=== PATIENT | female | born 1950 | race African-American/Black ===

== ENCOUNTER 2024-04-08 13:12 | Inpatient (IN) | payer MEDICARE ==
[~2024-04-08] VITALS: Ht 162.6 cm; Wt 68.0 kg
[2024-04-08] MEDS ORDERED: SODIUM CHLORIDE 0.9% 1000ML 1,000 ML IV SCH (14:15)
[2024-04-08 14:40] LABS: BASOPHILS % 0.1 % (0.0-1.0); EOSINOPHILS % 0.1 % (0.0-6.0); HEMATOCRIT 43.4 % (34.2-44.1); HEMOGLOBIN 13.4 g/dL (12.0-16.0); LYMPHOCYTES # (AUTO) 1.3 (1.0-3.2); LYMPHOCYTES % 15.2 % (18.0-39.1); MEAN CORPUSCULAR HEMOGLOBIN 29.5 pg (28-32); MEAN CORPUSCULAR HGB CONC 30.9 g/dL (31-35); MEAN CORPUSCULAR VOLUME 95.6 fL (81-99); MONOCYTES # (AUTO) 0.5 (0.2-0.8); MONOCYTES % 5.9 % (4.4-11.3); NEUTROPHILS # (AUTO) 6.9 (2.1-6.9); NEUTROPHILS % 78.4 % (38.7-80.0); PLATELET COUNT 227 x10e3/uL (140-360); RED BLOOD COUNT 4.54 x10e6/uL (3.6-5.1); RED CELL DISTRIBUTION WIDTH 11.9 % (11.7-14.4); WHITE BLOOD COUNT 8.79 x10e3/uL (4.8-10.8)
[2024-04-08 15:02] LABS: ALBUMIN/GLOBULIN RATIO 0.7 (0.8-2.0); BILIRUBIN,TOTAL 0.8 mg/dL (0.2-1.2); CALCIUM 9.5 mg/dL (8.4-10.2); CREATININE, SERUM 0.97 mg/dL (0.57-1.11); POTASSIUM 3.6 mmol/L (3.5-5.1); TOTAL PROTEIN 7.6 g/dL (6.5-8.1)
[2024-04-08 15:54] LABS: ANION GAP 12.6 mmol/L (8-16)
[2024-04-08 16:27] LABS: TROPONIN I 0.033 ng/mL (0-0.300)
[2024-04-08] MEDS: LACTATED RINGER'S 1,000 ML INJ ONE (17:13)
[2024-04-08 17:27] VITALS: PULSE 68; RESP 16; TEMP 98.2
[2024-04-08 17:33] LABS: BILIRUBIN,URINE MODERATE (NEGATIVE); CLARITY,URINE CLEAR (CLEAR); COLOR,URINE YELLOW (YELLOW); GLUCOSE, URINE NEGATIVE (NEGATIVE); KETONES,URINE >=160 (NEGATIVE); LEUKOCYTE ESTERASE ,URINE NEGATIVE (NEGATIVE); NITRITE,URINE NEGATIVE (NEGATIVE); PH,URINE 6 (5 - 7)
[2024-04-08 17:34] LABS: PROTEIN,URINE DIPSTICK 1+ (NEGATIVE)
[2024-04-08 17:45] LABS: BACTERIA,URINE MODERATE /HPF; EPITHELIAL CELLS,URINE FEW /LPF
[2024-04-08 17:47] LABS: MUCUS,URINE FEW (RARE)
[2024-04-08 18:38] VITALS: PULSE 69; RESP 18; O2SAT 98
[2024-04-08 22:38] VITALS: BP 155/83; PULSE 69; RESP 18; O2SAT 98
[2024-04-08 22:56] VITALS: BP 155/83; PULSE 69; RESP 18; TEMP 98.6; O2SAT 98
[2024-04-09] VITALS (7 sets, daily range): BP systolic 141–168; BP diastolic 63–77; PULSE 60–93; RESP 17–18; TEMP 97.3–100.2; O2SAT 94–99
[2024-04-09] MEDS ORDERED: ZYPREXA2.5 MG PO (02:28)
[2024-04-09] MEDS ORDERED: NAMENDA XR14 MG PO (02:28)
[2024-04-09] MEDS ORDERED: SALONPAS (02:28)
[2024-04-09] MEDS ORDERED: LISINOPRIL10 MG PO (02:28)
[2024-04-09] MEDS ORDERED: MUCUS ER600 MG PO (02:28)
[2024-04-09] MEDS ORDERED: ARICEPT5 MG PO (02:28)
[2024-04-09] MEDS ORDERED: HYDROCHLOROTHIA25 MG (02:28)
[2024-04-09] MEDS ORDERED: ZINC SULFATE50 M1 PO (02:28)
[2024-04-09] MEDS ORDERED: ASCORBIC ACID500 M2 PO (02:28)
[2024-04-09] MEDS ORDERED: LIPITOR10 MG PO (02:28)
[2024-04-09] MEDS ORDERED: MIRTAZAPINE15 MG PO (02:28)
[2024-04-09] MEDS ORDERED: LORATADINE10 MG PO (02:28)
[2024-04-09] MEDS ORDERED: DEPAKOTE ER250 MG PO (02:28)
[2024-04-09] MEDS ORDERED: VITAMIN D350 MCG (02:40)
[2024-04-09] MEDS: ACETAMINOPHEN 325 MG TAB PO PRN (05:48)
[2024-04-09 17:21] LABS: ANION GAP 16.2 mmol/L (8-16); CALCIUM 8.7 mg/dL (8.4-10.2); CREATININE, SERUM 0.74 mg/dL (0.57-1.11)
[2024-04-09 17:32] LABS: POTASSIUM 3.2 mmol/L (3.5-5.1)
[2024-04-09] MEDS: DEXTROSE 5% 1,000 ML IV SCH (17:50)
[2024-04-09] MEDS ORDERED: OLANZAPINE 5 MG TAB PO PRN (20:30)
[2024-04-09] MEDS: DONEPEZIL HCL 5 MG TAB PO SCH (21:00)
[2024-04-09] MEDS ORDERED: ATORVASTATIN 10 MG TAB PO SCH (21:00)
[2024-04-09] MEDS: MIRTAZAPINE 15 MG TAB PO PRN (22:16)
[2024-04-10 04:00] VITALS: BP 183/95; PULSE 60; RESP 18; TEMP 98.3; O2SAT 100
[2024-04-10] MEDS: HYDRALAZINE HCL 20 MG/ML VIAL IV PRN (04:27)
[2024-04-10 06:39] LABS: ANION GAP 18.1 mmol/L (8-16); CALCIUM 9.1 mg/dL (8.4-10.2); CREATININE, SERUM 0.76 mg/dL (0.57-1.11)
[2024-04-10 06:43] LABS: POTASSIUM 3.1 mmol/L (3.5-5.1)
[2024-04-10 09:00] VITALS: BP 183/95; PULSE 60; RESP 18; TEMP 98.3; O2SAT 100
[2024-04-10] MEDS ORDERED: DIVALPROEX SODIUM 250 MG TAB...DR PO SCH (09:00)
[2024-04-10] MEDS ORDERED: OLANZAPINE 5 MG TAB PO SCH (09:00)
[2024-04-10 12:09] VITALS: BP 150/90; PULSE 72; RESP 18; TEMP 98.2; O2SAT 95
[2024-04-10] MEDS: POTASSIUM CHLORIDE 20 MEQ TAB CR PO ONE (13:32)
[2024-04-10 15:58] VITALS: BP 132/90; PULSE 70; RESP 18; TEMP 98.2; O2SAT 93
[2024-04-10 20:00] VITALS: BP_SYST 140; BP_SYST 157; BP_DIAS 64; BP_DIAS 96; PULSE 62; PULSE 68; RESP 16; RESP 18; TEMP 98.4; TEMP 98.6; O2SAT 96; O2SAT 99
[2024-04-10] MEDS: DEXTROSE 5% 1,000 ML IV SCH (22:09)
[2024-04-11] VITALS (7 sets, daily range): BP systolic 124–163; BP diastolic 67–94; PULSE 77–99; RESP 18–21; TEMP 97.9–99.6; O2SAT 91–96
[2024-04-11] MEDS: LISINOPRIL 10 MG TAB PO SCH (10:01)
[2024-04-11 13:44] LABS: BASOPHILS % 0.2 % (0.0-1.0); EOSINOPHILS % 0.3 % (0.0-6.0); HEMATOCRIT 43.3 % (34.2-44.1); HEMOGLOBIN 14.3 g/dL (12.0-16.0); LYMPHOCYTES # (AUTO) 1.9 (1.0-3.2); LYMPHOCYTES % 22.5 % (18.0-39.1); MEAN CORPUSCULAR HEMOGLOBIN 29.7 pg (28-32); MEAN CORPUSCULAR VOLUME 89.8 fL (81-99); MONOCYTES # (AUTO) 0.6 (0.2-0.8); MONOCYTES % 7.1 % (4.4-11.3); NEUTROPHILS % 69.4 % (38.7-80.0); PLATELET COUNT 265 x10e3/uL (140-360); RED BLOOD COUNT 4.82 x10e6/uL (3.6-5.1); RED CELL DISTRIBUTION WIDTH 11.9 % (11.7-14.4); WHITE BLOOD COUNT 8.63 x10e3/uL (4.8-10.8)
[2024-04-11 14:03] LABS: ANION GAP 15.9 mmol/L (8-16); CALCIUM 8.9 mg/dL (8.4-10.2); CREATININE, SERUM 0.74 mg/dL (0.57-1.11)
[2024-04-11 14:10] LABS: POTASSIUM 2.9 mmol/L (3.5-5.1)
[2024-04-11] MEDS ORDERED: POTASSIUM CHLORIDE 10MEQ/100ML 100 ML IV ONE (14:45)
[2024-04-11] MEDS ORDERED: POTASSIUM CHLORIDE 20 MEQ TAB CR PO ONE (15:00)
[2024-04-11] MEDS: POTASSIUM CHLORIDE 10MEQ/100ML 100 ML IV SCH (15:18)
[2024-04-12 00:20] VITALS: BP 128/75; PULSE 81; RESP 19; TEMP 98.3; O2SAT 100
[2024-04-12 04:00] VITALS: BP 133/88; PULSE 88; RESP 18; TEMP 97.2; O2SAT 95
[2024-04-12 06:19] LABS: ANION GAP 13.9 mmol/L (8-16); CALCIUM 8.8 mg/dL (8.4-10.2); CREATININE, SERUM 0.78 mg/dL (0.57-1.11); POTASSIUM 3.9 mmol/L (3.5-5.1)
[2024-04-12 08:45] VITALS: BP 133/88; PULSE 88; RESP 18; TEMP 97.2; O2SAT 95
[2024-04-12 09:04] VITALS: BP 140/81; PULSE 88; RESP 16; TEMP 97; O2SAT 100
[2024-04-12 12:00] VITALS: BP 114/96; PULSE 79; RESP 16; TEMP 98.2; O2SAT 95
== END 2024-04-12 17:24 | disposition home or self-care (01) | DRG 640 ==
LOC: ER 13:29 → ERHOLD 18:05 → MED/SURG2 22:13
PROVIDERS: ADMIT Internal Medicine; ATTEND Internal Medicine
DX: E87.0 Hyperosmolality and hypernatremia (principal); U07.1 COVID-19; N39.0 Urinary tract infection, site not specified; G30.9 Alzheimer's disease, unspecified; F02.80 Dementia in other diseases classified elsewhere, unspecified severity, without behavioral disturbance, psychotic disturbance, mood disturbance, and anxiety; F06.8 Other specified mental disorders due to known physiological condition; R41.82 Altered mental status, unspecified; E87.6 Hypokalemia; I10 Essential (primary) hypertension; E78.5 Hyperlipidemia, unspecified; Z88.6 Allergy status to analgesic agent
CPT/HCPCS: 36415; 51700; 70450; 71045; 72125; 80048; 80053; 81001; 82550; 83605; 84484; 85025; 87040; 87086; 93005; 94799; 99284; J0360; J0696; J3480; J7030; J7070; U0002